=== PATIENT | female | born 1945 | race Caucasian/White ===

== ENCOUNTER 2019-01-21 21:40 | Emergency (ER) | payer MEDICARE ==
[~2019-01-21] VITALS: Ht 160 cm; Wt 63.0 kg
[2019-01-21] MEDS ORDERED: ACETAMINOPHEN TAB 650MG DOSE (2X325MG) PO ONE (23:15)
[2019-01-21] MEDS ORDERED: XANA0.25 PO (23:26)
[2019-01-21] MEDS ORDERED: MULTCAP PO (23:26)
[2019-01-21] MEDS ORDERED: LISI10TA4 PO (23:26)
[2019-01-21] MEDS ORDERED: PRAD150C6 PO (23:26)
[2019-01-21] MEDS ORDERED: ZETI10TA16 PO (23:26)
[2019-01-21] MEDS ORDERED: ATOR80TA59 PO (23:26)
[2019-01-21] MEDS ORDERED: LEVO75TA4 PO (23:26)
[2019-01-21] MEDS ORDERED: ZOFR8TAB24 PO (23:26)
[2019-01-21] MEDS ORDERED: CVS1CAP2 PO (23:26)
[2019-01-21] MEDS ORDERED: DIGO0.123 PO (23:26)
[2019-01-21] MEDS ORDERED: LOPE-39 PO (23:26)
[2019-01-21] MEDS ORDERED: CARD40TA PO (23:26)
--- NOTE | 2019-01-21 23:59 | REPVR ---
EXAM: CT Head Without Contrast EXAM DATE/TIME: 01/21/2019 11:13 PM CLINICAL HISTORY: 73 years old, female; Injury or Trauma; Fall; Initial encounter; Blunt Trauma (Contusions or hematomas); consciousness not specified; Additional Info: fall, eliquis, bruising R eyelid TECHNIQUE: Imaging protocol: Computed tomography images of the head without contrast. Radiation optimization: All CT scans at this facility use at least one of these dose optimization techniques: automated exposure control; mA and/or kV adjustment per patient size (includes targeted exams where dose is matched to clinical indication); or iterative reconstruction. COMPARISON: No relevant prior studies available. FINDINGS: Brain: Diffuse cerebral atrophy consistent with patient's age. Mild hypodensities in the periventricular white matter which are consistent with chronic small vessel ischemic disease. No acute mass effect. No acute intracranial hemorrhage. Ventricles: Ventricles are in proportion to the degree of atrophy. Bones/joints: Unremarkable. No acute fracture. Sinuses: Visualized sinuses are unremarkable. No fluid levels. Mastoid air cells: Visualized mastoid air cells are well aerated. No mastoid effusion. Soft tissues: Unremarkable. IMPRESSION: 1. No acute intracranial hemorrhage. 2. Mild hypodensities in the periventricular white matter which are consistent with chronic small vessel ischemic disease. Electronically signed by: Rufina Viera On 01/21/2019 23:58:47 PM
[2019-01-22] MEDS ORDERED: NEOSPORIN OINT 0.9 GM PKT (FLOOR STOCK) As Ordered ONE (00:24)
[2019-01-22 00:39] VITALS: BP 117/56
--- NOTE | 2019-01-23 12:02 | REP ---
LEFT SHOULDER, COMPLETE: 01/21/2019. Clinical history: Trauma, shoulder injury. Findings: Three views show fracture of the proximal humeral metaphysis and greater tuberosity of the humeral head with a few millimeters of distraction. There is no subluxation or dislocation. AC joint is intact. The visualized clavicle, scapula and ribs intact. Impression: 1. Proximal humeral metaphyseal fracture with no subluxation, dislocation, or intra-articular involvement. 2. The greater tuberosity fragment is distracted. No other finding. Electronically Signed by Rashaun Chicas MD 01/23/2019 12:22 P
--- NOTE | 2019-01-23 12:08 | REP ---
RIGHT KNEE, COMPLETE: 01/21/2019. Clinical history: Trauma, patient fell with swelling and tenderness about the knee. Findings: There are no prior studies. Five views are provided. Medial and lateral compartments are without narrowing. I do not see a suprapatellar effusion but there is prepatellar soft tissue swelling which may reflect an olecranon bursitis, perhaps traumatic. No loose body, osteochondral defect, joint space narrowing or fracture. No avulsion. Impression: 1. Prominent soft tissue swelling superficial to the patella that may reflect an olecranon bursitis, perhaps traumatic. 2. No definite joint effusion, fracture, loose body or osteochondral defect. Electronically Signed by Rashaun Chicas MD 01/23/2019 12:23 P
== END 2019-01-22 00:44 | disposition home or self-care (01) ==
LOC: M ED 21:40
DX: S42.202A Unspecified fracture of upper end of left humerus, initial encounter for closed fracture (principal); S80.01XA Contusion of right knee, initial encounter; S01.21XA Laceration without foreign body of nose, initial encounter; S05.11XA Contusion of eyeball and orbital tissues, right eye, initial encounter; M25.461 Effusion, right knee; W01.10XA Fall on same level from slipping, tripping and stumbling with subsequent striking against unspecified object, initial encounter; Y92.099 Unspecified place in other non-institutional residence as the place of occurrence of the external cause; Y93.89 Activity, other specified; Y99.9 Unspecified external cause status; Z79.899 Other long term (current) drug therapy; Z88.0 Allergy status to penicillin; Z88.2 Allergy status to sulfonamides